=== PATIENT | female | born 1980 | race African-American/Black ===

== ENCOUNTER 2019-04-01 18:08 | Emergency (ER) | payer SELFPAY ==
[~2019-04-01] VITALS: Ht 175.3 cm; Wt 129.7 kg
[~2019-04-01 18:08] MED LIST: ATARAX25 MG ORAL; AZITHROMYCIN250 MG ORAL; CLINDAMYCIN HC300 MG ORAL; IBUPROFEN600 MG ORAL; NKM; NORCO 5-325 TA1 EACH ORAL; PERCOCET 5-3251 EACH ORAL; PERMETHRIN60 GM TOPIC; PHENERGAN25 M1 ORAL; ZANTAC150 MG ORAL
[2019-04-01 18:18] VITALS: BP 122/83
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
[2019-04-01] MEDS ORDERED: IBUPROFEN600 MG ORAL (18:32)
[2019-04-01] MEDS ORDERED: CYCLOBENZAPRINE10 MG ORAL (18:32)
--- NOTE | 2019-04-01 18:44 | NUR ---
ER DISCHARGE NOTE: Patient is cleared to be discharged per ERMD, pt is aox4, on room air, with stable vital signs. pt was given dc and prescription instructions, pt was able to verbalize understanding, pt id band removed. pt is able to ambulate with steady gait. pt took all belongings.
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
== END 2019-04-01 18:44 | disposition home or self-care (01) ==
LOC: EMR 18:32
DX: S16.1XXA Strain of muscle, fascia and tendon at neck level, initial encounter (principal); V43.52XA Car driver injured in collision with other type car in traffic accident, initial encounter; Y92.410 Unspecified street and highway as the place of occurrence of the external cause; Z88.0 Allergy status to penicillin; M54.5 Low back pain; M25.511 Pain in right shoulder; E66.9 Obesity, unspecified; Z68.41 Body mass index [BMI] 40.0-44.9, adult
CPT/HCPCS: 99282